=== PATIENT | female | born 1980 | race African-American/Black ===

== ENCOUNTER 2020-07-05 22:33 | Outpatient (CLI) | payer OTHER ==
[~2020-07-05] VITALS: Ht 157.5 cm; Wt 99.1 kg
[2020-07-05 22:52] VITALS: BP 113/55
[2020-07-05 22:53] LABS: MICROSCOPIC INDICATED
[2020-07-05] MEDS ORDERED: PREN1TAB79 PO (23:02)
[2020-07-05] MEDS ORDERED: ASCO500C10 PO (23:02)
[2020-07-05] MEDS ORDERED: FERR325T5 PO (23:02)
[2020-07-05] MEDS ORDERED: ACET-1600 PO (23:02)
[2020-07-05] MEDS ORDERED: ASPI-515 PO (23:02)
== END 2020-07-05 23:28 | disposition home or self-care (01) ==
LOC: LDOP 22:33
PROVIDERS: ATTEND Obstetrics & Gynecology
DX: O09.92 Supervision of high risk pregnancy, unspecified, second trimester (principal); O26.892 Other specified pregnancy related conditions, second trimester; R10.2 Pelvic and perineal pain; Z3A.23 23 weeks gestation of pregnancy
CPT/HCPCS: 81001; 87086; 99211; G0463